=== PATIENT | female | born 1985 | race American Indian/Alaskan Native ===

== ENCOUNTER 2022-05-27 17:58 | Emergency (ER) | payer SELFPAY ==
[2022-05-27 19:59] LABS: Basophils % (Auto) 0.8 % (0.0-1.8); Eosinophils # (Auto) 0.1 K/mm3 (0.0-0.4); Eosinophils % (Auto) 1.1 % (0.0-4.3); Hematocrit 41.7 % (30.3-42.9); Hemoglobin 13.1 gm/dl (10.1-14.3); Lymphocytes # (Auto) 2.6 K/mm3 (1.2-5.4); Lymphocytes % (Auto) 41.2 % (13.4-35.0); Mean Corpuscular HGB Conc 31 % (30-34); Mean Corpuscular Volume 78 fl (79-97); Monocytes # (Auto) 0.5 K/mm3 (0.0-0.8); Monocytes % (Auto) 8.6 % (0.0-7.3); Platelet Count 261 K/mm3 (140-440); Red Blood Count 5.35 M/mm3 (3.65-5.03); Red Cell Distribution Width 14.5 % (13.2-15.2)
[2022-05-27 20:07] LABS: Alanine Aminotransferase 16 units/L (7-56); Albumin 4.6 g/dL (3.9-5); BUN/Creatinine Ratio 18; Blood Urea Nitrogen 16 mg/dL (7-17); Calcium 9.4 mg/dL (8.4-10.2); Hemolysis Index 8
[2022-05-27 22:35] VITALS: BP 122/66
[2022-05-27 22:36] LABS: Color,Urine Yellow (Yellow)
[2022-05-27 22:37] LABS: HCG Qualitative,Urine Negative (Negative)
[2022-05-27 22:38] LABS: Bacteria,Urine 4+ /HPF (Negative); Mucus,Urine 2+ /HPF
[2022-05-27] MEDS ORDERED: ONDANSETRON 4 MG ODT TAB PO ONE (22:39)
[2022-05-27] MEDS ORDERED: KETOROLAC 10 MG TAB PO ONE (22:39)
--- NOTE | 2022-05-27 23:20 | Emergency Department Report ---
ED Abdominal Pain HPI - General Chief Complaint: Abdominal Pain Stated Complaint: BACK PAIN/STOMACH PAIN Time Seen by Provider: 05/27/22 21:33 Source: patient Mode of arrival: Ambulatory Limitations: No Limitations - History of Present Illness Severity scale (0 -10): 10 - Related Data Previous Rx's Medication Instructions Recorded Last Taken Type Ibuprofen [Motrin] 800 mg PO Q8H PRN #30 tablet 01/14/15 Unknown Rx Ketorolac [Toradol] 10 mg PO Q6H PRN #12 tab 05/27/22 Unknown Rx Ondansetron [Zofran Odt] 4 mg PO Q8HR PRN #12 tab.rapdis 05/27/22 Unknown Rx cephALEXin [Keflex] 500 mg PO Q12HR #14 cap 05/27/22 Unknown Rx Allergies Allergy/AdvReac Type Severity Reaction Status Date / Time No Known Allergies Allergy Unverified 05/27/22 18:50 ED Review of Systems ROS: Stated complaint: BACK PAIN/STOMACH PAIN Other details as noted in HPI ED Past Medical Hx - Past Medical History Previous Medical History?: Yes Hx Asthma: Yes - Social History Smoking Status: Current Every Day Smoker Substance Use Type: None - Medications Home Medications: Home Medications Medication Instructions Recorded Confirmed Last Taken Type Ibuprofen [Motrin] 800 mg PO Q8H PRN #30 tablet 01/14/15 Unknown Rx Ketorolac [Toradol] 10 mg PO Q6H PRN #12 tab 05/27/22 Unknown Rx Ondansetron [Zofran Odt] 4 mg PO Q8HR PRN #12 tab.rapdis 05/27/22 Unknown Rx cephALEXin [Keflex] 500 mg PO Q12HR #14 cap 05/27/22 Unknown Rx ED Physical Exam - General Limitations: No Limitations ED Course Vital Signs 05/27/22 05/27/22 05/27/22 18:47 20:49 22:34 Temperature 98.7 F 98.9 F 98 F Pulse Rate 62 73 71 Respiratory 18 14 15 Rate Blood Pressure 115/79 126/70 122/66 [Left] O2 Sat by Pulse 99 98 99 Oximetry 05/27/22 05/27/22 22:35 23:07 Temperature Pulse Rate Respiratory 15 14 Rate Blood Pressure [Left] O2 Sat by Pulse 100 Oximetry ED Medical Decision Making - Lab Data Result diagrams: 05/27/22 19:26 05/27/22 19:26 Critical care attestation.: If time is entered above; I have spent that time in minutes in the direct care of this critically ill patient, excluding procedure time. ED Disposition Clinical Impression: UTI (urinary tract infection) Qualifiers: Urinary tract infection type: acute cystitis Hematuria presence: without hematuria Qualified Code(s): N30.00 - Acute cystitis without hematuria Disposition: HOME / SELF CARE / HOMELESS Is pt being admited?: No Does the pt Need Aspirin: No Condition: Stable Instructions: Abdominal Pain (ED), Antibiotic Medicine, Adult, [id number], Urinary Tract Infection, Adult, [id number] Additional Instructions: Take medications as prescribed. Increase intake of noncaffeinated fluids. Follow-up with the primary care provider if no improvement or worsening symptoms. Return to the emergency department as needed. Prescriptions: cephALEXin [Keflex] 500 mg PO Q12HR #14 cap Ketorolac [Toradol] 10 mg PO Q6H PRN #12 tab PRN Reason: Pain Ondansetron [Zofran Odt] 4 mg PO Q8HR PRN #12 tab.rapdis PRN Reason: Nausea And Vomiting Referrals: LOUISA VERAS MD [Staff Physician] - 3-5 Days Forms: Work/School Release Form(ED) Time of Disposition: 23:19
== END 2022-05-28 23:32 | disposition home or self-care (01) ==
LOC: ED 17:58
DX: N39.0 Urinary tract infection, site not specified (principal); J45.909 Unspecified asthma, uncomplicated; F17.200 Nicotine dependence, unspecified, uncomplicated; Z98.890 Other specified postprocedural states; Z79.899 Other long term (current) drug therapy
CPT/HCPCS: 36415; 80053; 81001; 81025; 85025; 87086; 99283; J3490; Q0162